=== PATIENT | female | born 1970 | race Caucasian/White ===

== ENCOUNTER 2018-01-10 14:13 | Emergency (ER) | payer OTHER ==
[2018-01-10 15:06] LABS: #Basophils 0.1 thou/uL (0.0-0.2); #Eosinphils 0.4 thou/uL (0.0-0.7); #Lymphocytes 3.9 thou/uL (1.20-3.40); #Monocytes 0.5 thou/uL (0.11-0.59); #Neutrophils 3.8 thou/uL (1.40-6.50); %Basophils 0.9 % (0.0-1.0); %Eosinophils 4.3 % (0.0-10.0); %Lymphocytes 45.1 % (21.0-51.0); %Neutrophils 43.7 % (42.0-75.0); Hemoglobin 13.6 g/dL (12.0-16.0); Mean Corpuscular HGB CONC 35.1 g/dL (32.0-36.0); Mean Corpuscular Hemoglobin 32.4 pg (27.0-31.0); Mean Corpuscular Volume 92.2 fl (81.0-99.0); Mean Platelet Volume 6.6 fL (7.4-10.4); Platelet Count 274 thou/uL (130-400); RBC Distribution Width 12.1 % (11.5-14.5); Red Blood Cell (RBC) Count 4.19 mill/uL (4.20-5.40); White Blood Cell (WBC) Count 8.6 thou/uL (4.8-10.8)
[2018-01-10 15:29] LABS: ALT (SGPT) 23 U/L (8-55); AST (SGOT) 22 U/L (5-34); Albumin 3.7 g/dL (3.5-5.0); Alkaline Phosphatase 73 U/L (40-150); Anion Gap 12 mmol/L (10-20); BUN (Urea Nitrogen) 13 mg/dL (7.0-18.7); Bilirubin, Total 0.3 mg/dL (0.2-1.2); Calc. Creatinine Clearance 0 mL/min (70-130); Calcium 9.1 mg/dL (7.8-10.44); Carbon Dioxide 26 mmol/L (22-29); Chloride 106 mmol/L (98-107); Estimated GFR-MDRD Greater than 90; Globulin 2.5 g/dL (2.4-3.5); Glucose 118 mg/dL (70-105); Potassium 3.5 mmol/L (3.5-5.1); Protein, Total 6.2 g/dL (6.0-8.3); Sodium 140 mmol/L (136-145)
[2018-01-10 15:54] LABS: Bilirubin Small (Negative); Blood, Urine Negative (Negative); Clarity CLOUDY (Clear); Glucose, Urine (Dipstick) Negative (Negative); Leukocyte Negative (Negative); Nitrite Negative (Negative); Protein, Urine (Dipstick) Trace mg/dL (Neg-Trace); Specific Gravity, Urine 1.029 (1.002-1.036)
== END 2018-01-10 16:43 | disposition home or self-care (01) ==
LOC: ERS 14:13
DX: R33.9 Retention of urine, unspecified (principal); N81.89 Other female genital prolapse; G89.29 Other chronic pain; F41.9 Anxiety disorder, unspecified; F32.9 Major depressive disorder, single episode, unspecified; F17.210 Nicotine dependence, cigarettes, uncomplicated
CPT/HCPCS: 36415; 51798; 80053; 81003; 85025; 87086

== ENCOUNTER 2018-08-13 07:38 | Outpatient (CLI) | payer OTHER ==
--- NOTE | 2018-08-13 11:37 | MRI ---
MRI THORACIC SPINE WITHOUT CONTRAST: History: Thoracic spine pain. Horse fell on patient in 2005. Comparison: None. Technique: Thoracic spine MRI was performed without intravenous gadolinium administration. Multiseque ntial, multiplanar imaging was performed. FINDINGS: Appropriate T1 marrow signal intensity in the thoracic vertebrae. Thoracic spine vertebral body heigh t is maintained. There is no fracture. There is intrinsic T1 and T2 hyperintensity involving the T3, T4, T6, T10 and T12 levels. Small hemangiomas are favored. No STIR hyperintensity suggesting vertebra l body edema or ligamentous injury. Mediastinal structures, lung parenchymal and solid organs have appropriate signal intensity. T2 hyper intensity in the posterior segment of the right hepatic lobe measuring approximately 1 cm may represe nt a cyst. Overall the thoracic cord has a normal size and signal intensity. No cord malacia. No cord T2 hyperin tensity. No cord expansion. Conus medullaris terminates at the upper aspect of L1. On the sagittal images, there is kinking of the thoracic cord at approximately T7-8 level. The cord a ppears to be at least partially external to the anterior aspect of the thecal sac. The possibility of an anterior dural tear with herniation of the cord at this level is suspected. T1-2 through T4-5: No significant central canal stenosis or foraminal narrowing. T5-6: Minimal generalized disc bulge. No significant central canal stenosis. T6-7: Minimal generalized disc bulge. No significant central canal stenosis. T7-8: Anterior herniation of the thoracic cord is suspected. There is deformity of the cord secondary to herniation. T8-9: There is a central disc bulge with superior and inferior extrusion. There is moderate central c anal stenosis with deformity of the thoracic cord, without T2 hypertension in the cord. T9-10 through T12-L1: No significant central canal stenosis. Throughout the thoracic spine, the neural foramina are patent. IMPRESSION: 1. Multifocal osseous hemangioma. 2. 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 No sign ificant abnormality in the cord. 3. Moderate central canal stenosis at T8-9. POS: [facility]
[2018-08-13] MEDS ORDERED: Gadobenate Dimeglumine 529 MG/1 ML (20ML VIAL) ONE (11:47)
--- NOTE | 2018-08-13 12:15 | MRI ---
MRI CERVICAL SPINE WITH AND WITHOUT CONTRAST: INDICATIONS: Cervical radiculopathy with neck pain. COMPARISON: No prior imaging comparison available. FINDINGS: There is multilevel susceptibility from anterior fusion, spanning C4 through C7. This does limit andie luation due to obscuration of anatomic detail. There is mild degenerative hypertrophy at the C1-C2 level without significant stenosis. C2-C3: There is no significant central canal stenosis. Bilateral uncinate process hypertrophy is pr esent, greater on the right, with moderate right and mild left neural foraminal narrowing. C3-C4: Broad-based osteophyte results in moderate central canal stenosis with associated ventral cor d flattening. There is bilateral uncinate process hypertrophy with mild bilateral neural foraminal s tenosis. C4-C5: Broad-based osteophyte results in mild narrowing of the central canal. There is minimal righ t and no significant left foraminal stenosis. C5-C6: Broad-based osteophyte with mild ventral cord flattening and mild central canal stenosis. Th ere is uncinate process hypertrophy with moderate right and mild left neural foraminal narrowing. C6-C7: Mild central canal stenosis due to broad-based osteophyte. There is limited visualization of the neural foramina due to streak artifact. C7-T1: There is mild central canal stenosis due to disk osteophyte formation. There is lateralized osteophyte formation with mild to moderate left and mild right neural foraminal stenosis. There is no intrinsic cord signal abnormality identified. Post contrast imaging is limited by signif icant patient motion. No pathologic intramedullary enhancement is confirmed. IMPRESSION: Postoperative cervical spine with multilevel degenerative changes. There is limited evaluation by pa tient motion, although there is no definite intramedullary enhancement. POS: [facility]
--- NOTE | 2018-08-13 12:49 | MRI ---
MRI LUMBAR SPINE WITH AND WITHOUT CONTRAST: HISTORY: Lumbar radiculopathy. Previous lumbar fusion. The patient has a remote trauma where a horse fell on the patient in 2005. Low back surgery. COMPARISON: None. TECHNIQUE: MRI of the lumbar spine is performed with and without intravenous Gadolinium administration. Multise quential, multiplanar imaging is performed. FINDINGS: There is fusion change at L4-L5 level. Anterior fusion plate with a metallic prosthesis of the disk space has noted. There is appropriate T1 marrow signal intensity of the lumbar vertebrae. there is no significant STIR hyperintensity to suggest vertebral body edema, fracture, or ligamentous injury. On the postcontrast images, there is no abnormal enhancement of the vertebral bodies. There does ap pear o be some enhancement of the nerve roots at the L1-L2 disk space level. No additional intrathec al enhancement. Conus medullaris terminates at the inferior aspect of L1. There is appropriate signal intensity in the visualized solid organs. Symmetric signal intensity of the psoas muscles. T12-L1: No significant central canal stenosis or foraminal narrowing. L1-L2: Adequate disk hydration. No significant central canal stenosis or neural foraminal narrowing . L2-L3: Adequate disk hydration. No significant central canal stenosis or neural foraminal narrowing . L3-L4: Adequate disk hydration. Generalized disk bulge, ligamentum flavum thickening, and facet hyp ertrophy result in mild to moderate central canal stenosis. Mild bilateral foraminal narrowing. L4-L5: Anterior fusion changes. There is a prominent posterior bridging osteophyte across the disk space. There are laminectomy defects. There is associated metallic susceptibility artifact. There is mild central canal stenosis. There is minimal enhancing scar tissue at the laminectomy effect sit e. There is enhancing scar tissue in the right subarticular zone, circumferential to the traversing right L5 nerve root. Moderate bilateral foraminal narrowing. L5-S1: Adequate disk hydration. No significant central canal stenosis. Neural foramina are moderat xander narrowed bilaterally. IMPRESSION: 1. Fusion and postoperative change of the lumbar spine as detailed above. There is enhancement of t he right subarticular zone at L5-S1 which is presumed to be due to scar tissue that encompasses the t raversing right S1 nerve root. 2. Nonspecific enhancement involving nerve roots at the L1-L2 disk space level. 3. The possibility of arachnoiditis due to a reactive process, including CSF hypotension, secondary t o the ventral cord herniation in the mid thoracic spine is a consideration. Other etiologies such as Guillain-Lansdale are less likely but cannot be excluded. Correlate clinically. POS: [facility]
== END 2018-08-13 07:39 | disposition home or self-care (01) ==
LOC: TBSIIMAG 07:38
PROVIDERS: ATTEND Surgery
DX: M54.16 Radiculopathy, lumbar region (principal); M47.22 Other spondylosis with radiculopathy, cervical region; M51.24 Other intervertebral disc displacement, thoracic region; M48.04 Spinal stenosis, thoracic region; D18.09 Hemangioma of other sites; Z98.1 Arthrodesis status
CPT/HCPCS: 72146; 72156; 72158; A9579

== ENCOUNTER 2018-10-01 06:30 | Day surgery (SDC) | payer OTHER ==
[2018-09-30 09:30] VITALS: BMI 31.4
[2018-10-01 08:25] VITALS: BP 109/70; TEMP 97.8
--- NOTE | 2018-10-01 08:44 | CT ---
CT CERVICAL SPINE WITHOUT CONTRAST: HISTORY: Neck pain. COMPARISON: None. FINDINGS: The odontoid process is intact. The occipital condyles are intact. There is ACDF hardware at C3-C6. There is no acute fracture or malalignment of the cervical spine. The lung apices are clear. Leve ls are as follows: C2-C3: Mild posterior degenerative disk space narrowing. There is severe right- and moderate left-s ided hypertrophic facet arthropathy. Moderate uncinate process hypertrophy. There is severe right a nd moderate left-sided neural foraminal narrowing. C3-C4: There is a central posterior disk osteophyte complex. There is 2 mm of anterolisthesis. Mod erate bilateral facet arthropathy. Moderate bilateral neural foraminal narrowing due to uncinate pro cess hypertrophy, as well as facet changes. C4-C5: Diskectomy changes. Moderate hypertrophic facet changes on the right. Mild uncinate process hypertrophy. Moderate right- and mild left-sided neural foraminal narrowing. C5-C6: There is right subforaminal posterior disk osteophyte complex. There is severe right- and mo derate left-sided neural foraminal narrowing. C6-C7: Mild uncinate process hypertrophy. No significant neural foraminal or spinal canal narrowing . IMPRESSION: Moderate spondylosis, as described. POS: [facility]
--- NOTE | 2018-10-01 09:01 | CT ---
CT LUMBAR SPINE WITHOUT CONTRAST: 10/01/2018 HISTORY: Neck pain and lower back pain for years. Kicked in back by a horse three weeks ago. COMPARISON: MRI lumbar spine on 08/13/2018. FINDINGS: There is a 1.5 cm hypodense nodule, which demonstrates an attenuation coefficient most compatible wit h an adrenal adenoma. Post cholecystectomy changes are noted. Vascular calcifications are seen in the abdominal aorta and involving the iliac arteries. The visualized retroperitoneal structures otherwise demonstrate a norm al CT appearance. As noted on the MRI exam, there is evidence of fusion at the L4-L5 level, with anterior fusion plate and screws transfixing this level. There are surgical clips seen just to the left of the lumbar spin e at this level as well. There is no evidence of a fracture or subluxation involving the lumbar spine. Laminectomy defect is again seen at the L4-L5 level. L1-L2: There is no disk bulge or disk herniation. The central spinal canal and neural foramina are patent. L2-L3: There is minimal disk osteophyte complex present at this level, resulting in slight effacemen t of the ventral aspect of the thecal sac. The neural foramina are patent. L3-L4: There is a disk osteophyte complex and facet hypertrophic changes with mild ligamentous thick ening. Moderate narrowing of the central spinal canal is present. No significant neural foraminal n arrowing is seen on the recent MRI, but on today's exam there is suggestion of mild to moderate narro wing of the neural foramina. L4-L5: Anterior fusion changes and laminectomy defect are seen at this level, as described. There i s bridging osteophyte seen posteriorly. There is soft tissue density seen in the right subarticular space, which likely corresponds to some enhancing scar tissue noted on the prior MRI exam. This is i n the expected location of the traversing right L5 nerve root. There is moderate right-sided neural foraminal narrowing with mild left-sided neural foraminal narrowing. L5-S1: There is no significant disk bulge or disk herniation. The central spinal canal is patent. There are facet degenerative changes at this level with mild to moderate left-sided neural foraminal narrowing. The right neural foramen is patent. IMPRESSION: 1. Fusion and postoperative changes, lumbar spine, at the L4-L5 level. 2. There is a soft tissue density in the right subarticular zone, at the L4-L5 level, which correspo nds to enhancement on MRI in this region and likely represents scarring. 3. Scattered degenerative changes in the lumbar spine. 4. No fracture or subluxation is seen. 5. Small left adrenal adenoma. POS: [facility]
[2018-10-01] MEDS ORDERED: Iopamidol-M 300 61% 15 ML VIAL ONE (10:27)
--- NOTE | 2018-10-01 12:33 | RAD ---
THORACIC MYELOGRAM WITH FLUOROSCOPIC GUIDED LUMBAR PUNCTURE: 10/01/2018 HISTORY: Patient with thoracic spine pain. The patient has a history of prior neck and low back surgery. His tory of injury in 2005 when horse fell on patient. TOTAL FLUOROSCOPY TIME: 1.3 minutes. TOTAL DOSE: 268.8 Gy per m2. TECHNIQUE: The procedure, including the risks and complications, was explained to the patient, and informed cons ent was obtained. The patient was placed on the fluoroscopy table in the supine position. An area o verlying the L3-L4 level was marked, and the area was meticulously prepped and draped in the usual st erile fashion. The skin and subcutaneous tissues were infiltrated with buffered 1% Lidocaine for loc al anesthesia. A 22 gauge spinal needle was advanced into the thecal sac, at the level of the L4 kip tebral body. After the inner stylet was removed, there was a return of clear cerebrospinal fluid. A s a result, approximately 8 mL of Isovue-M 300 contrast was instilled into the thecal sac. The inner stylet was removed, and the needle was removed. The patient tolerated the procedure well and without immediate complication. A dry, sterile dressing was placed at the puncture site. The patient was transported to the CT scan for further imaging. FINDINGS: Spikemaking Supervisor images of the thoracic and lumbar spine are obtained. There are multilevel osteophytes seen in volving the thoracic spine, but the vertebral body heights are within normal limits. There are post surgical changes at the L4-L5 level, related to anterior fusion, with anterior metallic prosthesis an d screws, as well as intradiskal prosthesis, transfixing this level. Surgical clips also overly this level. A laminectomy defect is seen posteriorly. No hardware complication is appreciated. Vertebr al body heights of the lumbar spine are otherwise within normal limits. No fracture or subluxation i s seen involving the lumbar spine. Vascular calcifications are seen in the abdominal aorta and involving the iliac arteries. A thoracic myelogram was successfully performed with puncture at the level of the L4 vertebral body. IMPRESSION: 1. Technically successful thoracic myelogram with lumbar puncture. 2. Multilevel osteophytes in the thoracic spine. 3. Post surgical changes of the visualized cervical spine, related to anterior cervical fusion at th e C4-C5, C5-C6, and C6-C7 levels, with interbody fusion material. No hardware complication is presen t. 4. Post surgical change related to anterior fusion at the L4-L5 level, with intradiskal prosthesis. 5. Please see thoracic myelogram, dictated as a separate report, for further evaluation. Also pleas e see CT scans of the thoracic and lumbar spine, which were performed prior to myelogram. POS: [facility]
--- NOTE | 2018-10-01 12:38 | CT ---
CT THORACIC SPINE POST MYELOGRAM: Date: 10-01-18 History: Thoracic spine pain. History of neck and low back surgery. Patient had horse fall on patient in 2005. Comparison: MRI thoracic spine 08-13-18 FINDINGS: There is dependent atelectasis bilaterally. There are linear and reticular nodular densities seen in the right lower lobe which could be related to infectious or inflammatory process. Mediastinal structures demonstrate grossly normal nonenhanced CT appearance although there is limited evaluation without IV contrast. Post cholecystectomy changes are partially imaged. There is a left adrenal nodule measuring 1.5 cm which demonstrates an attenuation coefficient suggest basim of an adrenal adenoma. Post-surgical changes are seen involving the cervical spine related to anterior cervical fusion with anterior plate and screws partially imaged involving the C6 and C7 vertebral bodies. Osteophytes are seen within the thoracic spine. The thoracic vertebral bodies are normal in height, a nd no fracture or subluxation is seen involving the thoracic spine. As noted on MRI of the thoracic spine, there is an anterior dural thoracic spinal cord herniation at the T7-8 level with kinking of the spinal cord at this level and flattening of the spinal cord at the level of anterior herniation. As noted on MRI examination there is a left paracentral disc herniatio n at the T7-8 level which also results in mild mass effect on the central and left anterolateral aspe ct of the spinal cord at level of anterior dural herniation. Neural foramina are patent at this level . At the T8-9 level there is a central disc protrusion which contacts the spinal cord and results in mi ld mass effect on the anterior aspect of the spinal cord. The neural foramina are patent at this leve l. No additional intradural or extradural defect is seen throughout the thoracic spine and the central s tamiko canal and neural foramina are otherwise widely patent at the remaining levels. Conus medullaris appears to terminate at the L1-2 level. IMPRESSION: 1. 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 2. Left paracentral disc protrusion at the T7-8 level with central disc protrusion at the T8-9 level, and the disc protrusions do result in mass effect on the spinal cord at these levels. Findings are unchanged from recent MRI examination of the thoracic spine. 3. Linear densities with slight reticular nodular appearance, and findings could be related to infect ious or inflammatory process in the right lower lobe. 4. Post-surgical changes lower cervical spine related to anterior cervical fusion with anterior plate and screws partially imaged. 5. Left adrenal adenoma. 6. Post cholecystectomy changes. POS: [facility]
== END 2018-10-01 10:35 | disposition home or self-care (01) ==
LOC: RAD 06:30 → EDSTATUS 08:00 → RAD 10:35
PROVIDERS: ATTEND Surgery
PROC: B01B1ZZ Fluoroscopy of Spinal Cord using Low Osmolar Contrast (ICD-10-PCS; principal; 2018-10-01)
DX: M47.812 Spondylosis without myelopathy or radiculopathy, cervical region (principal); M51.26 Other intervertebral disc displacement, lumbar region; M48.061 Spinal stenosis, lumbar region without neurogenic claudication; F17.200 Nicotine dependence, unspecified, uncomplicated; F41.8 Other specified anxiety disorders; M19.90 Unspecified osteoarthritis, unspecified site; Z79.899 Other long term (current) drug therapy; Z98.890 Other specified postprocedural states; Z98.1 Arthrodesis status
CPT/HCPCS: 62303; 72125; 72129; 72131; Q9967

== ENCOUNTER 2019-11-02 15:00 | Inpatient (IN) | payer OTHER ==
[2019-11-02 14:24] VITALS: BMI 33.5
[2019-11-03] MEDS ORDERED: Midazolam HCl 2 mg/2 ml Vial ONE (06:20)
[2019-11-03] MEDS ORDERED: Lidocaine 2% Jelly 5 ML TUBE ONE (06:20)
[2019-11-03] MEDS ORDERED: Propofol 1,000 MG/100 ML VIAL IV ONE (06:20)
[2019-11-03] MEDS ORDERED: HYDROmorphone 0.5 MG/0.5 ML SYRINGE ONE ×2 (06:20→13:17)
[2019-11-03] MEDS ORDERED: Fentanyl 100 MCG/2 ML VIAL ONE ×3 (06:20→14:40)
[2019-11-03] MEDS ORDERED: Thrombin 5000 UNITS/5 ML VIAL ONE (06:30)
[2019-11-03] MEDS ORDERED: Acetaminophen/Codeine 30-300mg Tablet PO PRN (07:25)
[2019-11-03] MEDS ORDERED: Diazepam 5 MG TAB PO PRN ×2 (07:25→07:41)
[2019-11-03] MEDS ORDERED: CeleCOXIB 100 MG CAP PO SCH (09:00)
[2019-11-03] MEDS ORDERED: Lidocaine 1% PF 5 ML VIAL ONE (09:03)
[2019-11-03] MEDS ORDERED: Rocuronium Bromide 10 MG/ML (10ML VIAL) ONE (09:03)
[2019-11-03] MEDS ORDERED: PROPOFOL 200 MG/20 ML VIAL ONE (09:03)
[2019-11-03] MEDS ORDERED: Succinylcholine Chloride 20 MG/ML 10 ml SYRINGE FS ONE (09:03)
[2019-11-03] MEDS ORDERED: Dexamethasone 20 MG/5 ML VIAL ONE (09:03)
[2019-11-03] MEDS ORDERED: PHENYLEPHRINE-NS 100 MCG/ML 10 ML SYRINGE ONE (09:03)
[2019-11-03] MEDS ORDERED: Phenylephrine 10 MG/ML VIAL ONE (09:04)
[2019-11-03] MEDS ORDERED: traMADol HCl 50 MG TAB PO PRN (13:04)
[2019-11-03] MEDS ORDERED: HYDROcodone/Acetaminophen 7.5/325 mg Tablet PO PRN (13:04)
[2019-11-03] MEDS ORDERED: Morphine 2 MG/ML SYRINGE SLOW IVP PRN (13:04)
[2019-11-03] MEDS ORDERED: Mag-Al 1200 mg/1200 mg/30 ML UDCUP PO PRN (13:04)
[2019-11-03] MEDS ORDERED: Ondansetron PF 4 MG/2 ML Vial IVP PRN ×2 (13:04→14:41)
[2019-11-03] MEDS ORDERED: Fleet Enema 133 ML BOT PR PRN (13:04)
[2019-11-03] MEDS ORDERED: Milk Of Magnesia 30 ML UDCUP PO PRN (13:04)
[2019-11-03] MEDS ORDERED: Acetaminophen 325 MG TAB PO PRN (13:04)
[2019-11-03] MEDS ORDERED: Bisacodyl 10 MG SUPP PR PRN (13:04)
[2019-11-03] MEDS ORDERED: Promethazine HCl 25 MG/ML VIAL IM PRN ×2 (13:06→14:41)
[2019-11-03] MEDS ORDERED: HYDROmorphone 2 MG/ML VIAL SLOW IVP PRN (13:06)
[2019-11-03] MEDS ORDERED: Ondansetron HCl/PF 4 MG/2 ML Vial IVP PRN (13:06)
[2019-11-03] MEDS ORDERED: Promethazine HCl 25 MG/ML VIAL SLOW IVP PRN (13:06)
--- NOTE | 2019-11-03 13:16 | OP ---
DATE OF PROCEDURE: 11/03/2019 BRAND STRATEGIST: Sue Davis PA-C LOCATION: OR 12. PREPROCEDURE DIAGNOSIS: Compresses thoracic myelopathy with possible spontaneous thoracic cerebrospinal fluid leak versus possible arachnoid cyst resulting in spinal cord compression and progressive neurologic decline, also with proximal adjacent segment disease causing severe lumbar stenosis. POSTPROCEDURE DIAGNOSIS: Compresses thoracic myelopathy with possible arachnoid cyst resulting in spinal cord compression and progressive neurologic decline, also with proximal adjacent segment disease causing severe lumbar stenosis. PROCEDURES PERFORMED: 1. Bottom of T6 to top of T9 or T7-T8 laminectomies for extradural exploration from the left to ascertain whether there was a spontaneous cerebrospinal fluid leak due to osteophytic spur. 2. Opening of the dura with identification of an arachnoid cyst with sampling of cyst wall, sending of pathology and resection of cyst wall for decompression of the spinal cord and adventist of cerebrospinal fluid flow. 3. Use of operative microscope for microdissection. 4. L3-L4 laminectomy, partial facetectomy, and foraminotomies. 5. Use of SSEP and MEP and free-run EMG monitoring intraoperatively. DESCRIPTION OF PROCEDURE: After informed consent was obtained from the patient, the patient was brought to the OR. Proper patient, pause, and identification were carried out. She was placed under excellent general endotracheal anesthesia; however, not under paralytic due to the fact that we were doing motor-evoked potentials and free-run EMG in the L4 nerve roots. She was then positioned prone with proper patient position and thoracic region at T7-T8 was identified. A linear christofer drawn in this region and again at L3-L4, a linear christofer drawn in that region, two separate incisions. The area was sterilely cleansed, prepared and draped. Proper patient, pause, and identification were carried out. We did obtain baseline SSEP and MEPs. Somewhat delay in the SSEPs preoperative as expected given the spinal cord compression. The areas were sterilely cleansed, prepared, and draped. Proper patient, pause, and identification were carried out. Incision was opened from T6 through T9, and the T7-T8 lamina identified and a ligament between T6-T7 and T7-T8 was removed to the top of T9 to expose the dura. I then worked in the left axilla of the T7 nerve root, where there may have been an osteophytic disk and explored. There was no extradural CSF leak, neither on CT myelography, MRI, nor did I identify any intraoperatively. I did identify the osteophytic disk, but it was not compressing the spinal cord and then there was no extradural identification of a hole in the dura spontaneously. I then turned my attention to where the microscope was brought in the field and the dura was opened in the midline. Immediately, we encountered thickened arachnoid consistent with arachnoid cyst wall and essentially based on that, I was able to ascertain that there was a compressive arachnoid cyst. The wall was removed and sent to pathology and I fenestrated this multiple locations, restoring flow throughout the thoracic region regarding spinal fluid. The nerve roots were preserved as was the cord in its entirety. SSEPs and MEPs remained stable. Copious irrigation maximizing hemostasis then occurred. We then closed the dura with a running locking suture and that wound was closed following meticulous hemostasis and DuraSeal placement over the dura. We then turned our attention to the lumbar spine and the L3-L4 was exposed. There was a scar tissue obviously in the L4 region and we identified the L3-L4 segment and an L3-L4 laminectomy, partial facetectomy, and foraminotomy was done. Free-run EMG, SSEP, and MEP monitoring were all stable throughout. Copious irrigation occurred. There was no spinal fluid leak. We then closed the wound in anatomic layers. Following sprinkling of vancomycin powder and meticulous hemostasis, the patient had emerged from anesthesia. Job ID: [id number]
[2019-11-03] MEDS ORDERED: CEFAZOLIN 2 GM in Premix Bag 1 BAG IVPB SCH (14:00)
[2019-11-03] MEDS ORDERED: diphenhydrAMINE 50 MG/ML VIAL IM/IV PRN (14:41)
[2019-11-03] MEDS ORDERED: Naloxone HCl 0.4 mg/ml Vial IV PRN (14:41)
[2019-11-03] MEDS: Fenofibrate Nanocrystallized 145 MG TAB PO SCH (15:14)
[2019-11-03] MEDS: Gabapentin 300 MG CAP PO SCH ×2 (15:14→20:40)
[2019-11-03] MEDS: Sodium Chloride 0.9% 1,000 ML IV SCH (15:14)
[2019-11-03] MEDS: CEFAZOLIN 2 GM in Premix Bag 1 BAG IVPB SCH (17:40)
[2019-11-03] MEDS: Atorvastatin Calcium 40 MG TAB PO SCH (20:40)
[2019-11-03] MEDS: Melatonin 3 MG TAB PO PRN (21:25)
[2019-11-04] MEDS: tiZANidine HCl 4 MG TAB PO PRN (02:23)
[2019-11-04] MEDS: CEFAZOLIN 2 GM in Premix Bag 1 BAG IVPB SCH ×3 (02:23→18:15)
[2019-11-04] MEDS: Sodium Chloride 0.9% 1,000 ML IV SCH ×2 (02:30→15:50)
[2019-11-04] MEDS: diphenhydrAMINE 25 MG CAP PO PRN (04:04)
[2019-11-04 05:30] LABS: Anion Gap 15 mmol/L (10-20); BUN (Urea Nitrogen) 7 mg/dL (7.0-18.7); Calc. Creatinine Clearance 167 mL/min (70-130); Calcium 8.3 mg/dL (7.8-10.44); Carbon Dioxide 20 mmol/L (22-29); Chloride 107 mmol/L (98-107); Estimated GFR-MDRD 88; Glucose 130 mg/dL (70-105); Potassium 4.4 mmol/L (3.5-5.1); Sodium 137 mmol/L (136-145)
[2019-11-04 05:46] LABS: #Eosinphils 0.1 thou/uL (0.0-0.7); #Lymphocytes 2.9 thou/uL (1.20-3.40); #Monocytes 1.3 thou/uL (0.11-0.59); #Neutrophils 12.8 thou/uL (1.40-6.50); %Basophils 0.1 % (0.0-1.0); %Eosinophils 0.4 % (0.0-10.0); %Monocytes 7.7 % (0.0-10.0); %Neutrophils 74.9 % (42.0-75.0); Hemoglobin 11.9 g/dL (12.0-16.0); Mean Corpuscular HGB CONC 33.4 g/dL (32.0-36.0); Mean Corpuscular Volume 92.8 fL (78.0-98.0); Mean Platelet Volume 7.6 fL (7.4-10.4); Platelet Count 313 thou/uL (130-400); RBC Distribution Width 12.1 % (11.5-14.5); Red Blood Cell (RBC) Count 3.84 mill/uL (4.20-5.40); White Blood Cell (WBC) Count 17.1 thou/uL (4.8-10.8)
[2019-11-04] MEDS: Gabapentin 300 MG CAP PO SCH ×3 (09:11→19:58)
[2019-11-04] MEDS: Fenofibrate Nanocrystallized 145 MG TAB PO SCH (09:12)
[2019-11-04] MEDS ORDERED: Diazepam 5 MG TAB PO PRN (09:57)
[2019-11-04] MEDS ORDERED: HYDROcodone/Acetaminophen 7.5/325 mg Tablet PO PRN (09:58)
[2019-11-04] MEDS ORDERED: traMADol HCl 50 MG TAB PO PRN (09:58)
[2019-11-04] MEDS ORDERED: Docusate 100 MG CAP PO PRN (10:00)
--- NOTE | 2019-11-04 10:19 | PRG ---
DATE OF SERVICE: 11/04/2019 Ms. Rosa Morales is doing well following thoracic arachnoid cyst fenestration and resection for spinal cord compression and myelopathy and also lumbar laminectomy for severe cauda equina compression, resulting in low back and leg pain, and coupled with myelopathy, frequent falls, and gait difficulty that was progressive. She is on a ASSET MANAGER. We will wean this today and initiate oral analgesics along with muscle relaxants. We will also initiate a Decadron taper and again wean her ASSET MANAGER with progression until 15 degrees head of bed elevation and fit 30 minutes, and if tolerated 30 degrees for 30 minutes and then activity as tolerated, we will place a consult for not only physical therapy, but inpatient rehab. Job ID: [id number]
[2019-11-04] MEDS ORDERED: HYDROcodone/Acetaminophen 7.5/325 mg Tablet PO SCH (12:00)
[2019-11-04] MEDS: Dexamethasone 4 MG TAB PO SCH ×3 (12:33→23:15)
[2019-11-04] MEDS: Acetaminophen 500 MG TAB PO SCH ×3 (12:33→23:15)
[2019-11-04] MEDS: fentaNYL Citrate/PF 2,000 MCG in Sodium Chloride 0.9% 60 ML IV PRN (14:57)
[2019-11-04] MEDS: Zolpidem Tartrate 5 MG TAB PO PRN (19:58)
[2019-11-04] MEDS: Atorvastatin Calcium 40 MG TAB PO SCH (19:58)
[2019-11-05] MEDS: CEFAZOLIN 2 GM in Premix Bag 1 BAG IVPB SCH ×2 (02:03→09:36)
[2019-11-05] MEDS: Acetaminophen 500 MG TAB PO SCH ×3 (05:31→16:55)
[2019-11-05] MEDS: Dexamethasone 4 MG TAB PO SCH ×3 (05:31→16:55)
[2019-11-05] MEDS: Sodium Chloride 0.9% 1,000 ML IV SCH ×2 (05:31→17:01)
[2019-11-05] MEDS: Gabapentin 300 MG CAP PO SCH ×3 (09:35→21:16)
[2019-11-05] MEDS: Fenofibrate Nanocrystallized 145 MG TAB PO SCH (09:35)
[2019-11-05] MEDS: fentaNYL Citrate/PF 2,000 MCG in Sodium Chloride 0.9% 60 ML IV PRN (17:32)
[2019-11-05] MEDS: Atorvastatin Calcium 40 MG TAB PO SCH (21:16)
[2019-11-05] MEDS: Zolpidem Tartrate 5 MG TAB PO PRN (21:16)
[2019-11-06] MEDS: Acetaminophen 500 MG TAB PO SCH ×4 (00:13→17:26)
[2019-11-06] MEDS: Dexamethasone 4 MG TAB PO SCH ×3 (00:14→11:48)
[2019-11-06] MEDS: Sodium Chloride 0.9% 1,000 ML IV SCH (06:06)
[2019-11-06] MEDS: Gabapentin 300 MG CAP PO SCH ×3 (08:36→22:06)
[2019-11-06] MEDS: Fenofibrate Nanocrystallized 145 MG TAB PO SCH (08:36)
--- NOTE | 2019-11-06 10:21 | PRG ---
DATE OF SERVICE: 11/06/2019 Ms. Rosa Morales is now postop day #3 from thoracic arachnoid cyst fenestration and resection and lumbar laminectomy for symptomatic myelopathy and neurogenic claudication with acute progressive gait decline and repeated falls. She is doing well postoperatively. I would like to get rid of the LENS MOLD SETTER completely today and our nurse colleagues will contact anesthesia in this regard. We will transition to oral agents from an activity standpoint. She has certainly improvement in her neurologic strength throughout her lower extremities and is already up ambulating with a rolling walker. The Joyner catheter has been removed this morning. We will monitor for urinary retention. From a disposition standpoint, her insurance does not cover inpatient rehabilitation, so she will be going home. She lives with her elderly mom and the patient will likely need assistance traveling home with transport. I anticipate another 2 to 3 days in the hospital, working on being safe at home essentially by herself, but overall, I am very pleased with how she is doing. Her final pathology is consistent with an arachnoid cyst. Job ID: [id number]
[2019-11-06] MEDS: Dexamethasone 1 MG TAB PO SCH ×2 (17:26→22:06)
[2019-11-06] MEDS: HYDROcodone/Acetaminophen 7.5/325 mg Tablet PO PRN ×2 (17:27→23:02)
[2019-11-06] MEDS ORDERED: Acetaminophen 325 MG TAB PO PRN (18:51)
[2019-11-06] MEDS: Atorvastatin Calcium 40 MG TAB PO SCH (22:06)
[2019-11-06] MEDS: Melatonin 3 MG TAB PO PRN (22:06)
[2019-11-06] MEDS: Docusate Calcium (SURFAK) 240 MG CAP PO SCH (22:07)
[2019-11-07] MEDS: Dexamethasone 1 MG TAB PO SCH ×4 (04:01→22:28)
[2019-11-07] MEDS: tiZANidine HCl 4 MG TAB PO PRN ×3 (04:01→22:27)
[2019-11-07] MEDS: HYDROcodone/Acetaminophen 7.5/325 mg Tablet PO PRN ×3 (04:03→16:38)
--- NOTE | 2019-11-07 07:01 | PRG ---
DATE OF SERVICE: 11/07/2019 Ms. Rosa Morales is postop day [address] Ho following thoracic laminectomy and fenestration of a spinal arachnoid cyst. Her pain level was reasonable until RELAY SHOP TESTER was discontinued today at which point, she has had increase in her pain symptoms comfortable. At some point, we would like to get her home and she is motivated to do so. She states she has been ambulating well and notes this with physical therapy, and we should make sure she is safe to do so. She will need med transport arranged and has asked if there is a way to set this where its more tolerable for her to get home as she has a roughly 3-hour drive. I will work with Case Management to see if there is a way that we can arrange for a more comfortable transport. Until then, we will continue to follow along. Job ID: [id number]
[2019-11-07] MEDS: Acetaminophen/Codeine 30-300mg Tablet PO PRN ×3 (08:25→20:37)
[2019-11-07] MEDS: Fenofibrate Nanocrystallized 145 MG TAB PO SCH (08:25)
[2019-11-07] MEDS: Polyethylene Glycol 3350 17 GM Packet PO SCH (08:25)
[2019-11-07] MEDS: Gabapentin 300 MG CAP PO SCH ×3 (08:25→20:36)
--- NOTE | 2019-11-07 13:25 | PRG ---
DATE OF SERVICE: I have reviewed the note as dictated by JORDYN Mckeon and agree with his assessment. The plan is to continue with mobilization of the patient and improve pain control. We will work toward getting her discharged by the latter part of this weekend or beginning part of the next week. Job ID: [id number] MTDD
[2019-11-07] MEDS: Docusate Calcium (SURFAK) 240 MG CAP PO SCH (20:36)
[2019-11-07] MEDS: Atorvastatin Calcium 40 MG TAB PO SCH (20:36)
[2019-11-07] MEDS: Melatonin 3 MG TAB PO PRN (20:37)
[2019-11-07] MEDS: traMADol HCl 50 MG TAB PO PRN (22:28)
[2019-11-08] MEDS: Dexamethasone 1 MG TAB PO SCH ×3 (05:50→19:16)
[2019-11-08] MEDS: HYDROcodone/Acetaminophen 7.5/325 mg Tablet PO PRN ×3 (05:51→20:31)
[2019-11-08] MEDS: Polyethylene Glycol 3350 17 GM Packet PO SCH (09:51)
[2019-11-08] MEDS: Fenofibrate Nanocrystallized 145 MG TAB PO SCH (09:53)
[2019-11-08] MEDS: Gabapentin 300 MG CAP PO SCH ×3 (09:53→20:32)
--- NOTE | 2019-11-08 11:29 | PRG ---
DATE OF SERVICE: 11/08/2019 Ms. Morales this morning seems to be more comfortable than yesterday. She has continued to ambulate fairly well and is very motivated to go home. Our concern right now is transportation from the nonemergent transfer back home, which is the . She was noted speaking with Case Management yesterday, there was a little confidence that we would be able to get this done this weekend, so perhaps tomorrow. Job ID: [id number]
[2019-11-08] MEDS: traMADol HCl 50 MG TAB PO PRN (15:57)
[2019-11-08] MEDS: diphenhydrAMINE 25 MG CAP PO PRN (20:31)
[2019-11-08] MEDS: Docusate Calcium (SURFAK) 240 MG CAP PO SCH (20:31)
[2019-11-08] MEDS: Atorvastatin Calcium 40 MG TAB PO SCH (20:31)
[2019-11-08] MEDS: Melatonin 3 MG TAB PO PRN (20:31)
[2019-11-09] MEDS: traMADol HCl 50 MG TAB PO PRN (00:14)
[2019-11-09] MEDS: Dexamethasone 1 MG TAB PO SCH ×3 (00:14→11:48)
[2019-11-09] MEDS: HYDROcodone/Acetaminophen 7.5/325 mg Tablet PO PRN (05:17)
[2019-11-09] MEDS: Gabapentin 300 MG CAP PO SCH (09:28)
[2019-11-09] MEDS: Fenofibrate Nanocrystallized 145 MG TAB PO SCH (09:29)
[2019-11-09] MEDS: Polyethylene Glycol 3350 17 GM Packet PO SCH (09:29)
[2019-11-09] MEDS: Acetaminophen/Codeine 30-300mg Tablet PO PRN (09:33)
[2019-11-09 12:17] VITALS: BP 125/81; TEMP 98.1
--- NOTE | 2019-11-09 22:01 | PRG ---
DATE OF SERVICE: 11/09/2019 SUBJECTIVE: The patient is now postop day #6 after undergoing thoracic laminectomy with intradural exploration involving fenestration and resection of spinal arachnoid cyst, as well as lumbar laminectomy. The patient was sitting up right in bed and eating breakfast this morning when I evaluated her. She reports that she is doing very well today and requests to go home. She states that she walked several laps about the floor over the weekend. She denies any balance difficulties or falls. She states that her leg pain and paresthesias have significantly improved compared to before surgery. Her back pain is well controlled with pain medications. Unfortunately, she was unable to attend the inpatient rehab due to her insurance not being accepted; however, at this time, I am optimistic that she will do well, recovering at home. She seems motivated and has family present, who can help her with her recovery. I should also note that the patient states that she has not had any bowel incontinence episodes since her surgery, which she stated has been years since she has not had to wear a pad should she wet herself. OBJECTIVE: On exam, the patient is awake, alert, and appropriate. She has good movement and excellent strength throughout her upper and lower extremities bilaterally. Sensation to light touch is intact throughout her extremities. Her back wounds have dressing in place that is dry without any signs of drainage. PLAN: At this time is for the patient to be discharged home today with appropriate pain medications. We will arrange for followup in clinic in the upcoming weeks. I reviewed postoperative restrictions and wound care. The patient will follow up as directed or call our office sooner with any questions or concerns. Overall, I am very pleased with her improvement after surgery and is optimistic that she will continue to experience the improvement over the upcoming weeks. Job ID: [id number]
[2019-11-11] MEDS ORDERED: Dexamethasone 1 MG TAB PO SCH (05:00)
== END 2019-11-09 14:43 | disposition home or self-care (01) | DRG 519 ==
LOC: SURG A 11-03 05:50
PROVIDERS: ADMIT Surgery; ATTEND Surgery
PROC: 00NX0ZZ Release Thoracic Spinal Cord, Open Approach (ICD-10-PCS; principal; 2019-11-03)
PROC: 00UT0JZ Supplement Spinal Meninges with Synthetic Substitute, Open Approach (ICD-10-PCS; 2019-11-03)
PROC: 01NB0ZZ Release Lumbar Nerve, Open Approach (ICD-10-PCS; 2019-11-03)
PROC: 4A11X4G Monitoring of Peripheral Nervous Electrical Activity, Intraoperative, External Approach (ICD-10-PCS; 2019-11-03)
DX: M51.04 Intervertebral disc disorders with myelopathy, thoracic region (principal); G83.4 Cauda equina syndrome; M54.16 Radiculopathy, lumbar region; M48.062 Spinal stenosis, lumbar region with neurogenic claudication; G96.19 Other disorders of meninges, not elsewhere classified; I10 Essential (primary) hypertension; E78.5 Hyperlipidemia, unspecified; M79.7 Fibromyalgia; J30.2 Other seasonal allergic rhinitis; R29.6 Repeated falls; F17.200 Nicotine dependence, unspecified, uncomplicated; E66.9 Obesity, unspecified; Z68.33 Body mass index [BMI] 33.0-33.9, adult; Z79.899 Other long term (current) drug therapy; Z79.82 Long term (current) use of aspirin; Z90.710 Acquired absence of both cervix and uterus
CPT/HCPCS: 36415; 76000; 80048; 85025; 85027; 85610; 85730; 88304; 88307; 88331; 88341; 88342; 93005; 93010; J0690; J1100; J1170; J2001; J2250; J2370; J2704; J3010; J3370; J3490; J8540; Q0163

== ENCOUNTER 2020-01-12 07:32 | Outpatient (CLI) | payer OTHER ==
--- NOTE | 2020-01-12 09:12 | MRI ---
MRI thoracic spine noncontrast: DATE: 01/12/2020 HISTORY: 49-year-old female with thoracic radiculopathy COMPARISON: MRI of 08/13/2018 FINDINGS: Vertebral body heights are maintained. Normal bone marrow signal except for scattered hemangiomas of bone, the largest one of which is at T4. New laminectomy defect from T6-7 through T8-9. There is a new large retrospinal postoperative fluid c ollection spanning the levels of laminectomy from T6-7 through T8-9, 5.6 cm in craniocaudal dimension at the posterior aspect of the spinal canal. This fluid collection extends posteriorly almo st reaching the posterior skin surface, 5.3 cm in AP dimension. The focal anterior kinking of the spinal cord at the upper T8 level is no longer present. However, th e small central and left paracentral superiorly migrated disc extrusion is still present, and it continues to indent the left ventral aspect of the spinal cord. Furthermore, the new large postoperat basim retrospinal fluid bulges anteriorly into the spinal canal, displacing the spinal cord anteriorly. The spinal cord is now compressed between this posterior fluid collection and the still p resent left paracentral superiorly migrated small disc extrusion fragment, resulting in severe stenosis in AP dimension of the thecal sac, especially on the left side, resulting in cord compressio n and flattening, at the T7 and T7-8 level. The previously demonstrated focal anterior kinking at the T7-8 or upper T8 level, representing ventra l cord herniation, has apparently resolved. However, the anterior bulging of the retrospinal fluid collection causes moderate central spinal gaetano l stenosis at the T8 level. At T8-9, there continues to be the central focal disc extrusion with slight superior migration which still deeply indents and deforms the spinal cord. The thecal sac is moderately severely stenotic because of the combination of this disc extrusion and a new intraspinal fluid collection indenting th e posterior aspect of the spinal canal. It is difficult to evaluate for intramedullary signal abnormality at the levels of cord compression, but there is no intramedullary signal abnormality in the rest of the thoracic spinal cord. No syrinx. IMPRESSION: 1. Interval central and left paracentral laminectomy from T6-7 through T8-9. 2. New findings of severe central spinal canal stenosis and significant cord compressions at T7 to T 7-8, and at and T8 to T8-9, due to the combination of the new right spinal postoperative fluid collection protruding into the posterior aspect of the spinal canal, and the pre-existing disc extrus ions at T7-8 and T8-9. 3. The previous finding of ventral cord herniation at T7-8 has apparently resolved.
--- NOTE | 2020-01-12 09:36 | MRI ---
MRI LUMBAR SPINE NONCONTRAST: DATE: 01/12/2020 HISTORY: 49-year-old female with "M 48.061 spinal stenosis, lumbar region" Low back pain COMPARISON: 08/13/2018 FINDINGS: Vertebral body heights are maintained. The level with a tiny accessory right rib will be designated a s L1. Consequently, there are 5 lumbar-type vertebrae. No major bone marrow signal abnormality. No high-grade disc space narrowing at any level. T12-L1:Essentially normal. L1-2:Essentially normal. Conus medullaris terminates at this level. L2-3:Mild ligamentum flavum thickening. Minimal disc bulge. No high-grade central spinal canal stenos is. No high-grade neural foraminal stenosis. L3-4:There is a new midline laminectomy defect, relieving the previously demonstrated high-grade cent ral spinal canal stenosis. There is a new postoperative fluid collection measuring approximately 1.5 cm transverse x 2.5 cm craniocaudal x 2 cm AP which abuts the posterior aspect of the thecal sac. No change in moderate bilateral neural foraminal stenosis. Clumping of cauda equina at the L3 and L4 levels. L4-5:Grade 1 anterolisthesis of L4 on L5 stabilized by metallic and nonmetallic interbody cage, with successful fusion of the L4 and L5 vertebral bodies via ankylosis of the endplates through the obliterated disc space, which is now filled with fatty marrow. Previously demonstrated midline decomp ressive laminectomy defect is again noted, with generous caliber of thecal sac. However, previously, at the mid L4 level, the degenerative facet hypertrophy and ligamentum flavum thickening, was causing central spinal canal stenosis. That has been relieved by the laminectomy defect described above at L3-4 level, which reaches down to the mid L4 level. No interval change in the chronic moderate to severe bilateral neural foraminal stenosis (stenosis in the AP dimension but not craniocaudal dimension). L5-S1:Small central disc protrusion and minimal disc bulge. Moderate-severe bilateral neural foramina l stenosis in the AP dimension remains (no stenosis in the craniocaudal dimension). Mild right facet DJD. Moderate to severe left facet DJD. No high-grade central spinal canal stenosis. IMPRESSION: 1) interval midline laminectomy at L3-4, relieving the previously demonstrated central spinal canal s tenosis at that level. 2) clumping of cauda equina nerve roots from L3-4 through mid L4 levels, raising the possibility of c hronic arachnoiditis. 3) old stabilization of the grade 1 spondylolisthesis at L4-5 with interbody cage, and successful ank ylosis between the vertebral bodies. 4) old midline laminectomy at L4-5. 5) high-grade bilateral neural foraminal stenosis remains at L4-5 and L5-S1, unchanged.
== END 2020-01-12 07:33 | disposition home or self-care (01) ==
LOC: BICMRI 07:32
PROVIDERS: ATTEND Nurse Practitioner Family
DX: M48.061 Spinal stenosis, lumbar region without neurogenic claudication (principal); M51.14 Intervertebral disc disorders with radiculopathy, thoracic region; M43.16 Spondylolisthesis, lumbar region; M48.07 Spinal stenosis, lumbosacral region; M48.04 Spinal stenosis, thoracic region; K43.9 Ventral hernia without obstruction or gangrene; Z98.890 Other specified postprocedural states
CPT/HCPCS: 72146; 72148

== ENCOUNTER 2021-05-16 12:03 | Outpatient (CLI) | payer OTHER ==
[~2021-05-16 12:03] MED LIST: Magnevist 469MG/ML 20 ML VIAL ONE
== END 2021-05-16 12:04 | disposition home or self-care (01) ==
LOC: BICMRI 12:03
PROVIDERS: ATTEND Surgery
DX: M47.12 Other spondylosis with myelopathy, cervical region (principal); M48.062 Spinal stenosis, lumbar region with neurogenic claudication; M50.01 Cervical disc disorder with myelopathy, high cervical region; M43.12 Spondylolisthesis, cervical region; M51.14 Intervertebral disc disorders with radiculopathy, thoracic region; M47.816 Spondylosis without myelopathy or radiculopathy, lumbar region; Z98.1 Arthrodesis status; Z98.890 Other specified postprocedural states
CPT/HCPCS: 72156; 72157; 72158

== ENCOUNTER 2021-06-08 14:34 | Outpatient (CLI) | payer OTHER ==
[2021-06-08 17:08] LABS: Hemoglobin 13.8 g/dL (12.0-15.5); Mean Corpuscular HGB CONC 32.4 g/dL (32.0-36.0); Mean Corpuscular Hemoglobin 30.7 pg (27.0-33.0); Mean Corpuscular Volume 94.9 fl (81.6-98.3); Mean Platelet Volume 10.5 fl (7.4-10.4); Platelet Count 348 10x3/uL (150-450); RBC Distribution Width 13.7 % (11.5-14.5); Red Blood Cell (RBC) Count 4.49 10x6/uL (3.90-5.03); White Blood Cell (WBC) Count 11.2 10x3/uL (3.5-10.5)
[2021-06-08 17:42] LABS: PTT 22.8 sec (22.0-33.0); Prothrombin Time 10.8 sec (9.5-12.1)
[2021-06-08 17:44] LABS: Anion Gap 15 mmol/L (10-20); BUN (Urea Nitrogen) 19 mg/dL (7.0-18.7); Calc. Creatinine Clearance 0 mL/min (70-130); Calcium 9.2 mg/dL (7.8-10.44); Carbon Dioxide 24 mmol/L (22-29); Chloride 105 mmol/L (98-107); Glucose 94 mg/dL (70-105); Potassium 4.1 mmol/L (3.5-5.1); Sodium 140 mmol/L (136-145)
[2021-06-09 11:54] LABS: SARS-CoV-2 PCR by NAA Not Detected (NotDetected)
== END 2021-06-08 14:35 | disposition home or self-care (01) ==
LOC: LABBT 14:34
PROVIDERS: ATTEND Surgery
DX: Z01.818 Encounter for other preprocedural examination (principal); M50.00 Cervical disc disorder with myelopathy, unspecified cervical region; M47.12 Other spondylosis with myelopathy, cervical region; Z20.822 Contact with and (suspected) exposure to COVID-19
CPT/HCPCS: 80048; 85027; 85610; 85730; 86850; 86900; 86901; U0003; U0005

== ENCOUNTER 2021-06-13 06:24 | Inpatient (IN) | payer OTHER ==
[2021-06-08 17:08] LABS: Hemoglobin 13.8 g/dL (12.0-15.5); Mean Corpuscular HGB CONC 32.4 g/dL (32.0-36.0); Mean Corpuscular Hemoglobin 30.7 pg (27.0-33.0); Mean Corpuscular Volume 94.9 fl (81.6-98.3); Mean Platelet Volume 10.5 fl (7.4-10.4); Platelet Count 348 10x3/uL (150-450); RBC Distribution Width 13.7 % (11.5-14.5); Red Blood Cell (RBC) Count 4.49 10x6/uL (3.90-5.03); White Blood Cell (WBC) Count 11.2 10x3/uL (3.5-10.5)
[2021-06-08 17:42] LABS: PTT 22.8 sec (22.0-33.0); Prothrombin Time 10.8 sec (9.5-12.1)
[2021-06-08 17:44] LABS: Anion Gap 15 mmol/L (10-20); BUN (Urea Nitrogen) 19 mg/dL (7.0-18.7); Calc. Creatinine Clearance 0 mL/min (70-130); Calcium 9.2 mg/dL (7.8-10.44); Carbon Dioxide 24 mmol/L (22-29); Chloride 105 mmol/L (98-107); Glucose 94 mg/dL (70-105); Potassium 4.1 mmol/L (3.5-5.1); Sodium 140 mmol/L (136-145)
[2021-06-09 11:54] LABS: SARS-CoV-2 PCR by NAA Not Detected (NotDetected)
[2021-06-13] MEDS ORDERED: ceFAZolin Sodium (SDC) 2 GM/100 ML BAG ONE (06:47)
[2021-06-13] MEDS ORDERED: Dexmedetomidine 200 MCG/2 ML VIAL ONE (06:59)
[2021-06-13] MEDS ORDERED: Fentanyl 250 MCG/5 ML VIAL ONE (06:59)
[2021-06-13] MEDS ORDERED: Thrombin 5000 UNITS/5 ML VIAL ONE (07:03)
[2021-06-13] MEDS ORDERED: Midazolam HCl 2 mg/2 ml Vial ONE (07:25)
[2021-06-13] MEDS ORDERED: Glycopyrrolate 0.2 MG/ML 5 ML SYRINGE ONE (07:34)
[2021-06-13] MEDS ORDERED: Ondansetron PF 4 MG/2 ML Vial ONE ×2 (07:34→09:53)
[2021-06-13] MEDS ORDERED: Rocuronium Bromide 10 MG/ML (10ML VIAL) ONE (07:34)
[2021-06-13] MEDS ORDERED: Dexamethasone 20 MG/5 ML VIAL ONE (07:34)
[2021-06-13] MEDS ORDERED: Lidocaine 1% PF 5 ML VIAL ONE ×2 (07:34)
[2021-06-13] MEDS ORDERED: PROPOFOL 200 MG/20 ML VIAL ONE (07:34)
[2021-06-13] MEDS ORDERED: Promethazine HCl 25 MG/ML VIAL IM PRN (09:18)
[2021-06-13] MEDS ORDERED: Promethazine HCl 25 MG/ML VIAL IVPB PRN (09:18)
[2021-06-13] MEDS ORDERED: PACU-Morphine 4MG/ML VIAL SLOW IVP PRN (09:18)
[2021-06-13] MEDS ORDERED: HYDROmorphone 2 MG/ML VIAL SLOW IVP PRN (09:18)
[2021-06-13] MEDS ORDERED: Morphine Sulfate 2 MG/ML SYRINGE SLOW IVP PRN (09:18)
[2021-06-13] MEDS ORDERED: Ondansetron HCl/PF 4 MG/2 ML Vial IVP PRN (09:18)
[2021-06-13] MEDS ORDERED: HYDROmorphone 2 MG/ML VIAL ONE (09:53)
[2021-06-13] MEDS ORDERED: Fentanyl 100 MCG/2 ML VIAL ONE (09:53)
[2021-06-13] MEDS ORDERED: Ondansetron PF 4 MG/2 ML Vial IVP PRN (10:02)
[2021-06-13] MEDS ORDERED: Acetaminophen 325 MG TAB PO PRN (10:02)
[2021-06-13] MEDS ORDERED: Acetaminophen/Codeine 30-300mg Tablet PO PRN (10:02)
[2021-06-13] MEDS ORDERED: tiZANidine HCl 4 MG TAB PO PRN (10:07)
[2021-06-13] MEDS ORDERED: hydrALAZINE 20 MG/ML VIAL SLOW IVP PRN (10:08)
[2021-06-13] MEDS ORDERED: Loratadine 10 MG TAB PO PRN (12:18)
[2021-06-13] MEDS: Morphine 4 MG/ML VIAL SLOW IVP PRN ×6 (12:51→21:34)
[2021-06-13] MEDS: Sodium Chloride 0.9% 1,000 ML IV SCH (12:52)
[2021-06-13 14:35] VITALS: BMI 33.7
[2021-06-13] MEDS: Gabapentin 300 MG CAP PO SCH ×2 (15:24→21:18)
[2021-06-13] MEDS ORDERED: FLU VACC QS2021-22(6MOS UP)/PF 60 MCG/0.5 ML SYRINGE IM ONE (15:45)
[2021-06-13] MEDS ORDERED: CEFAZOLIN 2 GM in Sodium Chloride 0.9% 100 ML IVPB SCH (16:00)
[2021-06-13] MEDS: ceFAZolin Sodium/D5W 2 GM in Premix Bag 1 BAG IVPB SCH (18:38)
[2021-06-13] MEDS: HYDROcodone/Acetaminophen 7.5/325 mg Tablet PO PRN (19:40)
[2021-06-13] MEDS ORDERED: traZODone HCl 50 MG TAB PO SCH (21:00)
[2021-06-13] MEDS ORDERED: Fenofibrate Nanocrystallized 145 MG TAB PO SCH (21:00)
[2021-06-13] MEDS ORDERED: Estrogens, Conjugated 0.3 MG TAB PO SCH (21:00)
[2021-06-13] MEDS ORDERED: Atorvastatin Calcium 40 MG TAB PO SCH (21:00)
[2021-06-14] MEDS: Sodium Chloride 0.9% 1,000 ML IV SCH (00:10)
[2021-06-14] MEDS ORDERED: Sodium Chloride 0.9% 500 ML IV PRN (00:41)
[2021-06-14] MEDS: ceFAZolin Sodium/D5W 2 GM in Premix Bag 1 BAG IVPB SCH ×2 (02:07→12:09)
[2021-06-14] MEDS: HYDROcodone/Acetaminophen 7.5/325 mg Tablet PO PRN (03:32)
[2021-06-14] MEDS: Morphine 4 MG/ML VIAL SLOW IVP PRN ×2 (06:36→12:15)
[2021-06-14] MEDS ORDERED: Cyanocobalamin 1000 MCG/ML VIAL IM SCH (09:00)
[2021-06-14] MEDS ORDERED: PSYLLIUM HUSK 0.52 GM PO SCH (09:00)
[2021-06-14] MEDS ORDERED: CeleCOXIB 100 MG CAP PO SCH (09:00)
[2021-06-14] MEDS: Gabapentin 300 MG CAP PO SCH (09:05)
[2021-06-14 11:51] VITALS: BP 120/58; TEMP 97.9
== END 2021-06-14 12:35 | disposition home or self-care (01) | DRG 472 ==
LOC: SDC 06:24 → ONC 10:02
PROVIDERS: ADMIT Surgery; ATTEND Surgery
PROC: 0RG10A0 Fusion of Cervical Vertebral Joint with Interbody Fusion Device, Anterior Approach, Anterior Column, Open Approach (ICD-10-PCS; principal; 2021-06-13)
PROC: 0RB30ZZ Excision of Cervical Vertebral Disc, Open Approach (ICD-10-PCS; 2021-06-13)
PROC: 01N10ZZ Release Cervical Nerve, Open Approach (ICD-10-PCS; 2021-06-13)
PROC: 00NW0ZZ Release Cervical Spinal Cord, Open Approach (ICD-10-PCS; 2021-06-13)
PROC: 0RP104Z Removal of Internal Fixation Device from Cervical Vertebral Joint, Open Approach (ICD-10-PCS; 2021-06-13)
DX: M48.02 Spinal stenosis, cervical region (principal); M47.12 Other spondylosis with myelopathy, cervical region; M47.22 Other spondylosis with radiculopathy, cervical region; Z20.822 Contact with and (suspected) exposure to COVID-19; Z90.49 Acquired absence of other specified parts of digestive tract; Z98.41 Cataract extraction status, right eye; Z98.42 Cataract extraction status, left eye; Z90.710 Acquired absence of both cervix and uterus; Z98.1 Arthrodesis status
CPT/HCPCS: 71045; 76000; 80048; 85027; 85610; 85730; 86850; 86900; 86901; C1713; C1776; J0690; J1100; J1170; J2250; J2270; J2405; J2704; J3010; J3420; J7050; J7620; U0003; U0005